=== PATIENT | male | born 1975 | race Caucasian/White ===

== ENCOUNTER → 2018-02-28 13:59 | Outpatient (CLI) | payer BC | END | disposition home or self-care (01) | LOC: D.MRI 13:59 | DX: M54.12 Radiculopathy, cervical region (principal) ==

== ENCOUNTER 2018-09-08 03:52 | Emergency (ER) | payer BC ==
[~2018-09-08] VITALS: Ht 182.9 cm; Wt 120.5 kg
[2018-09-08 03:55] VITALS: Ht 182.9 cm; Wt 120.5 kg
[2018-09-08] MEDS ORDERED: COZAAR50 MG PO (03:57)
[2018-09-08] MEDS ORDERED: ULTRAM50 MG PO (03:57)
[2018-09-08 04:17] LABS: APPEARANCE CLEAR (CLEAR); BILIRUBIN NEGATIVE (NEGATIVE); COLOR YELLOW (YELLOW); GLUCOSE 500 mg/dL (NEGATIVE); KETONE NEGATIVE (NEGATIVE); NITRITE NEGATIVE (NEGATIVE); PROTEIN NEGATIVE (NEGATIVE); SPECIFIC GRAVITY 1.015 (1.005-1.020); UROBILINOGEN NORMAL (NORMAL)
[2018-09-08 04:18] LABS: BASOPHILS 0.3 % (0-2); EOSINOPHILS 1.7 % (0-7); HEMATOCRIT 47.1 % (42.0-54.0); HEMOGLOBIN 16.3 g/dL (13.5-17.5); IMMATURE GRANULOCYTES 0.4 % (0-5); LYMPHOCYTES 23.1 % (15-50); MCH 28.6 pg (26.0-34.0); MCHC 34.6 g/dL (31.0-37.0); MCV 82.8 fL (80.0-100.0); MONOCYTES 8.2 % (2-11); NEUTROPHILS 66.3 % (40-80); PLATELET COUNT 307 10x3/uL (130-400); RBC 5.69 10x6/uL (4.20-6.10); WBC 12.1 10x3/uL (4.8-10.8)
[2018-09-08 04:33] LABS: ALBUMIN 3.5 g/dL (3.4-5.0); ALKALINE PHOSPHATASE 101 U/L (46-116); ALT (SGPT) 35 U/L (10-68); CALC OSMOLALITY 279 mosm/kg (275-300); CALCIUM 8.2 mg/dL (8.5-10.1); CARBON DIOXIDE 29.8 mmol/L (21.0-32.0); CHLORIDE - SERUM 104 mmol/L (98-107); CREATININE - SERUM 0.8 mg/dL (0.6-1.3); GLUCOSE 125 mg/dL (74-106); POTASSIUM - SERUM 3.7 mmol/L (3.5-5.1); PROTEIN - SERUM 7.3 g/dL (6.4-8.2); SODIUM 141 mmol/L (136-145); UREA NITROGEN 7 mg/dL (7-18); eGFR NON AFRICAN AMERICAN > 90 mL/min (90-120)
[2018-09-08] MEDS ORDERED: DILAUDID4 MG PO (05:53)
[2018-09-08 06:08] VITALS: BP 147/93
[2018-10-11 06:49] VITALS: Ht 182.9 cm; Wt 120.5 kg
== END 2018-09-08 06:08 | disposition home or self-care (01) ==
LOC: D.ER 03:52
PROVIDERS: Emergency Medicine
DX: K80.80 Other cholelithiasis without obstruction (principal)

== ENCOUNTER 2018-10-11 06:50 | Day surgery (SDC) | payer BC ==
[2018-10-10 09:21] LABS: BASOPHILS 0.3 % (0-2); EOSINOPHILS 1.8 % (0-7); HEMATOCRIT 44.6 % (42.0-54.0); HEMOGLOBIN 15.9 g/dL (13.5-17.5); IMMATURE GRANULOCYTES 0.2 % (0-5); LYMPHOCYTES 18.9 % (15-50); MCHC 35.7 g/dL (31.0-37.0); MCV 81.2 fL (80.0-100.0); MEAN PLATELET VOLUME 10.2 fL (7.4-10.4); MONOCYTES 10.4 % (2-11); NEUTROPHILS 68.4 % (40-80); PLATELET COUNT 280 10x3/uL (130-400); RBC 5.49 10x6/uL (4.20-6.10); WBC 9.1 10x3/uL (4.8-10.8)
[2018-10-10 09:32] LABS: CALC OSMOLALITY 277 mosm/kg (275-300); CALCIUM 8.7 mg/dL (8.5-10.1); CARBON DIOXIDE 30.4 mmol/L (21.0-32.0); CHLORIDE - SERUM 103 mmol/L (98-107); CREATININE - SERUM 0.9 mg/dL (0.6-1.3); GLUCOSE 125 mg/dL (74-106); POTASSIUM - SERUM 3.7 mmol/L (3.5-5.1); SODIUM 140 mmol/L (136-145); UREA NITROGEN 8 mg/dL (7-18); eGFR NON AFRICAN AMERICAN > 90 mL/min (90-120)
[~2018-10-11] VITALS: Ht 177.8 cm; Wt 117.7 kg
[2018-10-11 06:49] VITALS: BP 139/82; Ht 177.8 cm; Wt 117.7 kg
[~2018-10-11 06:50] MED LIST: COZAAR50 MG PO; DILAUDID4 MG PO; ULTRAM50 MG PO
[2018-10-11] MEDS ORDERED: HYDROCODON-ACE1 EA10 PO (10:40)
--- NOTE | 2018-10-11 16:51 | NUR ---
1600-CONTACTED VIA PHONE WITH BLADDER SCANNER RECORDING OF 369. PT TO STAY ONE MORE HOUR TO SEE IF HE IS ABLE TO URINATE. VSS. DENIES PAIN. CATH PATENT TO LEFT HAND AT KVO. AT BEDSIDE,CL IN EASY REACH
--- NOTE | 2018-10-22 10:07 | OP ---
PATIENT NAME: FRANCIA GRANT MEDICAL RECORD: [id number] :71 LOCATION:[facility] ADMISSION DATE: SURGEON: KINGSLEY BARTON MD DATE OF OPERATION: 10/11/2018 PREOPERATIVE DIAGNOSES: 1. Gallstones. 2. Ventral hernia. 3. Hypertension. POSTOPERATIVE DIAGNOSES: 1. Gallstones. 2. Ventral hernia. 3. Hypertension. PROCEDURE: 1. Ventral hernia repair with 4.[address] mesh. 2. Laparoscopic cholecystectomy. SURGEON: Kingsley Barton MD REPORT OF PROCEDURE: The patient's abdomen was prepped and draped in sterile fashion. A semicircular incision was made on the inferior aspect of the umbilicus. Electrocautery was used to dissect through the subcutaneous tissues. There was a hernia defect present. We penetrated through the hernia sac and entered the abdominal cavity. We took the hernia sac down to the fascial edges. 0 Vicryls were placed on the edges of the fascia and a 12-mm trocar was inserted into the abdomen. Under direct visualization, a 5-mm trocar was placed in the epigastrium and 2 more 5-mm trocars were placed in the right subcostal region. The gallbladder was grasped and elevated. The cystic artery and cystic duct were dissected free and these were clipped proximally and distally and ligated in standard fashion. The gallbladder was then taken off the liver bed using electrocautery and placed into an Endo Catch bag. The right upper quadrant was irrigated out and any bleeding was treated with electrocautery. At this point, the ports and insufflation were then removed and the gallbladder was taken out through the umbilicus. A 4.[address] patch was inserted in an underlay fashion and sutured down on all 4 sides using multiple interrupted 0 Prolenes. We irrigated out the wound. The fascia was then closed over the mesh using running 0 Vicryl. The umbilicus was tacked down to the fascia with interrupted 3-0 Vicryl and the subcutaneous tissues were reapproximated with interrupted 3-0 Vicryl. The skin was closed with running subcutaneous 5-0 Monocryl and the wounds were dressed appropriately. The patient had been given 10 mL of 0.25% Marcaine with epinephrine to the surrounding tissues before dressings were applied. COMPLICATIONS: None. CONDITION: Stable. ANESTHESIA: General endotracheal and local. BLOOD LOSS: Minimal. TRANSINT:[id number] Voice Confirmation ID: [id number] DOCUMENT ID: [id number] OPERATIVE REPORT [id number] FRANCIA GRANT, KINGSLEY KANG at 1007 CC: RAMIREZ MATA DO [id number] DICTATION DATE: 10/11/18 1044 [employer] PROCESSOR: 10/11/18 1131 [facility] [place] 10/11/18 [address] [place] [address]
== END 2018-10-11 17:00 | disposition home or self-care (01) ==
LOC: D.OPS 06:50 → D.PAN 08:30 → D.OPS 08:30
PROVIDERS: ATTEND Surgery
DX: K80.10 Calculus of gallbladder with chronic cholecystitis without obstruction (principal); K43.9 Ventral hernia without obstruction or gangrene; I10 Essential (primary) hypertension; Z01.812 Encounter for preprocedural laboratory examination

== ENCOUNTER → 2019-08-25 13:53 | Outpatient (CLI) | payer BC ==
[2018-10-11 06:49] VITALS: BMI 37.2
--- NOTE | ~2019-08-25 | EC ---
PATIENT:FRANCIA GRANT DATE OF SERVICE: 08/25/19 SEX: M MEDICAL RECORD: [id number] DATE OF : 71 LOCATION:[facility] AGE OF PATIENT: 44 ADMISSION DATE: 08/25/19 REFERRING PHYSICIAN: INTERPRETING PHYSICIAN: KAREL OROURKE MD ECHOCARDIOGRAM REPORT ECHO CHARGES 4 ECHO COMPLETE Date: 08/25/19 CLINICAL DIAGNOSIS: HEART MURMUR ECHOCARDIOGRAPHIC MEASUREMENTS (adult normal given) AC root (d.<3.7cm) 3.4 cm LV Septum d (<1.2 cm> 1.2 cm Valve Excursion 1.5 cm LV Septum (systole) 1.5 cm Left Atria (s.<4.0cm> 3.4 cm LVPW d(<1.2cm) 1.2 cm RV (d.<2.3cm) 3.5 cm LVPW (sytole) 1.4 cm LV diastole(<5.6CM) 4.8 cm MV E-F(>70mm/sec) cm LV systole 3.6 cm LVOT Diameter 1.8 cm MV exc.(>10mm) 1.5 cm Est.ejection fraction (50-75%) % DOPPLER: LVIT cm/sec A 72.0 cm/sec E 53.0 cm/sec LA cm/sec RVSP 19 mmHg LVOT 121 cm/sec AOP1/2T m/s Asc. Ao 160 cm/sec RVOT 91 cm/sec RA cm/sec PA 165 cm/sec AV Gradient Peak 10.30mmHg AV Mean 5.54 mmHg AV Area 1.9 cm MV Gradient Peak 3.41 mmHg MV Mean 1.59 mmHg MV Area cm COMMENTS: Electrotherapist: 2 CADEN PINON End User Support Specialist: 3 Dr. Alva TAPE# PACS Pericardial Effusion N DATE OF SERVICE: Adequate 2D, color flow imaging, spectral Doppler, and M-Mode. Borderline LVH. LV internal dimension is normal. Wall motion is normal. EF is greater than or equal to 55%. Aortic valve is tricuspid. No evidence of stenosis by Doppler interrogation. Left atrium is normal. Mitral valve shows no prolapse. Trace MR. Right-sided chambers are grossly normal. Trace TR. TRANSINT:[id number] Voice Confirmation ID: [id number] DOCUMENT ID: [id number] ECHOCARDIOGRAM REPORT [id number] WEIBERG,KAREL POP MD CC: [id number] DICTATION DATE: 08/26/19 1243 [employer] ARCHITECT: 08/26/19 1326 DEP CLI 08/25/19 [address] [place] [address]
--- NOTE | ~2019-08-25 | ST ---
PATIENT:FRANCIA GRANT MEDICAL RECORD: [id number] SEX: M LOCATION:[facility] ORDER #: ADMISSION DATE: 08/25/19 AGE OF PATIENT: 44 REFERRING PHYSICIAN: INTERPRETING PHYSICIAN: KAREL OROURKE MD DATE OF SERVICE: 08/25/2019 PROCEDURE: Treadmill stress test. Baseline ECG is normal. Exercised for 7 minutes 16 seconds on Jarvis protocol, maximum heart rate 151 beats per minute, greater than 85% max predicted. No ECG changes for ischemia. No symptoms of ischemia. Normal blood pressure response to exercise. No arrhythmias noted. [id number] exercise tolerance for age. TRANSINT:[id number] Voice Confirmation ID: [id number] DOCUMENT ID: [id number] KAREL OROURKE MD CC: [id number] DICTATION DATE: 08/26/19 1227 OFFICE CLIN ASST: 08/26/19 1251 DEP CLI 08/25/19 [facility] [address] [place] [address]
[~2019-08-25 13:53] MED LIST changes: +HYDROCODON-ACE1 EA10 PO
== END | disposition home or self-care (01) ==
LOC: D.HCCECHO 13:53
PROVIDERS: ATTEND Internal Medicine Interventional Cardiology
DX: R01.1 Cardiac murmur, unspecified (principal)